=== PATIENT | female | born 1970 | race African-American/Black ===

== ENCOUNTER 2016-08-09 19:33 | Inpatient (IN) | payer BC, OTHER ==
[~2016-08-09] VITALS: Ht 157.5 cm; Wt 86.2 kg
[~2016-08-09 19:33] MED LIST: BYSTOLIC10 MG PO; OLME1TAB5 PO
[2016-08-09 20:22] LABS: BASO # 0.1 x10^3/uL (0.0-0.2); BASO % 1 % (0-3); CALCIUM 9.7 mg/dL (8.5-10.1); CREATININE 1.7 mg/dL (0.6-1.0); EOS % 0 % (0-3); HEMATOCRIT 29.1 % (36.0-47.0); LYMPH # 1.8 x10^3/uL (1.0-4.8); LYMPH % 20 % (24-48); MEAN CORPUSCULAR HEMOGLOBIN 23 pg (25-35); MEAN CORPUSCULAR HGB CONC 31 g/dL (31-37); MEAN CORPUSCULAR VOLUME 74 fL (79-100); MONO % 5 % (0-9); NEUT % 74 % (31-73); PLATELET COUNT 158 x10^3/uL (140-400); POTASSIUM 3.3 mmol/L (3.5-5.1); RED BLOOD COUNT 3.93 x10^6/uL (3.50-5.40); RED CELL DISTRIBUTION WIDTH 18.1 % (11.5-14.5); WHITE BLOOD COUNT 8.9 x10^3/uL (4.0-11.0)
[2016-08-09 20:27] LABS: ALBUMIN 3.4 g/dL (3.4-5.0); DIRECT BILIRUBIN 0.4 mg/dL (0.0-0.2); TOTAL PROTEIN 9.8 g/dL (6.4-8.2)
[2016-08-09 20:51] LABS: HYPOCHROMIA MOD; PLT ESTIMATE ADEQUATE (ADEQUATE)
[2016-08-09 20:52] LABS: ANISOCYTOSIS SLIGHT; MICROCYTOSIS SLIGHT; POLYCHROMASIA SLIGHT
[2016-08-09 21:52] LABS: BILIRUBIN,URINE NEGATIVE (NEG); GLUCOSE,URINE NEGATIVE (NEG); NITRITE,URINE NEGATIVE (NEG); PH,URINE 5.5; PROTEIN,URINE NEGATIVE (NEG-TRACE)
[2016-08-09 21:59] LABS: BACTERIA,URINE MODERATE /HPF (0-FEW); RBC,URINE 0 /HPF (0-2); SQUAMOUS EPITHELIAL CELL,UR MOD /LPF
--- NOTE | 2016-08-09 22:59 | PHYS DOC ---
Past Medical History Past Medical History: Hypertension Past Surgical History: No Surgical History Alcohol Use: Occasionally Drug Use: None Adult General Chief Complaint Chief Complaint: DIZZY/LIGHT HEADED HPI HPI 46-year-old female presenting to the emergency department with lightheadedness and dizziness intermittently for the past few days. It is worse with standing and started after being prescribed hydrocodone and Flexeril. She denies chest pain or shortness of breath. She was of prescribed this for her chronic back pain. Onset 2 days Location generalized Duration intermittent Worse with standing up. Review of Systems Review of Systems ROS negative for chest pain shortness of breath abdominal pain nausea vomiting. All other review of systems is negative unless otherwise noted in history of present illness. Current Medications Current Medications Current Medications Medications (Trade) Dose Ordered Sig/Bianca Start Time Stop Time Status Last Admin Dose Admin Morphine Sulfate 2 mg 2 mg PRN Q2HR PRN 08/09/16 23:00 08/10/16 22:59 Ondansetron HCl (Zofran) 4 mg PRN Q8HRS PRN 08/09/16 23:00 08/10/16 22:59 Potassium Chloride (Klor-Con) 20 meq 1X ONCE 08/09/16 23:45 08/09/16 23:46 DC Sodium Chloride (Iv Sodium Chloride 0.9% 1000ml Bag) 1,000 ml @ 125 mls/hr 1X ONCE 08/09/16 23:00 08/10/16 06:59 Allergies Allergies Allergies Coded Allergies Type Severity Reaction Last Updated Verified No Known Drug Allergies 03/29/15 No Physical Exam Physical Exam Constitutional: Well developed, well nourished, no acute distress, non-toxic appearance. HENT: Normocephalic, atraumatic, bilateral external ears normal, oropharynx moist, no oral exudates, nose normal. [] Eyes: PERRLA, EOMI, conjunctiva normal, no discharge. [] Neck: Normal range of motion, no tenderness, supple, no stridor. Cardiovascular:Heart rate regular rhythm, no murmur [] Lungs & Thorax: Bilateral breath sounds clear to auscultation Abdomen: Bowel sounds normal, soft, no tenderness, no masses, no pulsatile masses. [] Skin: Warm, dry, no erythema, no rash. Back: No tenderness, no CVA tenderness. [] Extremities: No tenderness, no cyanosis, no clubbing, ROM intact, no edema. Neurologic: Mental status: Awake oriented and alert x3 Cranial nerves: Extraocular movements intact, eyebrows nadia bilaterally smile symmetric, uvula elevation, shoulder shrug intact, tongue protrusion normal DTRs: 2+ Sensation: equal and normal in all extremities Strength: 5/5 in upper and lower extremities bilaterally Psychologic: Affect normal, judgement normal, mood normal. Current Patient Data Vital Signs Vital Signs Date Time Temp Pulse Resp B/P Pulse Ox O2 Delivery O2 Flow Rate FiO2 08/09/16 19:33 98.6 92 14 179/103 99 Room Air 98.6 Lab Values Laboratory Tests Test 08/09/16 19:49 08/09/16 21:19 White Blood Count 8.9x10^3/uL (4.0-11.0) Red Blood Count 3.93x10^6/uL (3.50-5.40) Hemoglobin 9.0g/dL (12.0-15.5) L Hematocrit 29.1% (36.0-47.0) L Mean Corpuscular Volume 74fL (79-100) L Mean Corpuscular Hemoglobin 23pg (25-35) L Mean Corpuscular Hemoglobin Concent 31g/dL (31-37) Red Cell Distribution Width 18.1% (11.5-14.5) H Platelet Count 158x10^3/uL (140-400) Neutrophils (%) (Auto) 74% (31-73) H Lymphocytes (%) (Auto) 20% (24-48) L Monocytes (%) (Auto) 5% (0-9) Eosinophils (%) (Auto) 0% (0-3) Basophils (%) (Auto) 1% (0-3) Neutrophils # (Auto) 6.5x10^3uL (1.8-7.7) Lymphocytes # (Auto) 1.8x10^3/uL (1.0-4.8) Monocytes # (Auto) 0.5x10^3/uL (0.0-1.1) Eosinophils # (Auto) 0.0x10^3/uL (0.0-0.7) Basophils # (Auto) 0.1x10^3/uL (0.0-0.2) Platelet Estimate Adequate (ADEQUATE) Polychromasia Slight Hypochromasia Mod Anisocytosis Slight Microcytosis Slight Sodium Level 136mmol/L (136-145) Potassium Level 3.3mmol/L (3.5-5.1) L Chloride Level 99mmol/L (98-107) Carbon Dioxide Level 22mmol/L (21-32) Anion Gap 15 (6-14) H Blood Urea Nitrogen 24mg/dL (7-20) H Creatinine 1.7mg/dL (0.6-1.0) H Estimated GFR (Cockcroft-Gault) 39.0 Glucose Level 157mg/dL (70-99) H Calcium Level 9.7mg/dL (8.5-10.1) Total Bilirubin 1.0mg/dL (0.2-1.0) Direct Bilirubin 0.4mg/dL (0.0-0.2) H Aspartate Amino Transferase (AST) 93U/L (15-37) H Alanine Aminotransferase (ALT) 62U/L (14-59) H Alkaline Phosphatase 168U/L (46-116) H Troponin I Quantitative < 0.017ng/mL (0.000-0.055) MF-Fhz-G-Type Natriuretic Peptide 55pg/mL (0-124) Total Protein 9.8g/dL (6.4-8.2) H Albumin 3.4g/dL (3.4-5.0) Lipase 83U/L (73-393) Urine Collection Type Unknown Urine Color Yellow Urine Clarity Cloudy Urine pH 5.5 Urine Specific [place] 1.015 Urine Protein Negativemg/dL (NEG-TRACE) Urine Glucose (UA) Negativemg/dL (NEG) Urine Ketones (Stick) Negativemg/dL (NEG) Urine Blood Negative (NEG) Urine Nitrite Negative (NEG) Urine Bilirubin Negative (NEG) Urine Urobilinogen Dipstick 1.0mg/dL (0.2 mg/dL) Urine Leukocyte Esterase Negative (NEG) Urine RBC 0/HPF (0-2) Urine WBC 1-4/HPF (0-4) Urine Squamous Epithelial Cells Mod/LPF Urine Bacteria Moderate/HPF (0-FEW) Urine Mucus Slight/LPF Laboratory Tests 08/09/16 19:49 Laboratory Tests 08/09/16 19:49 EKG EKG EKG shows sinus rhythm with regular rate. Normal intervals. Normal axis. ST segments are congruent. Not suggestive of ACS. Reviewed by myself.[] Radiology/Procedures Radiology/Procedures [] Course & Med Decision Making Course & Med Decision Making Pertinent Labs and Imaging studies reviewed. (See chart for details) 46-year-old female presenting to the emergency department with dizziness and lightheadedness after being prescribed medication. On evaluation, the patient's vital signs showed hypertension, otherwise unremarkable.. Orthostatic vital signs were within normal limits. Physical exam showed a normal neurologic exam. Otherwise the patient's blood work showed an anemia without previous for comparison. Urinalysis not suggestive of infection. Chemistry panel showed elevated BUN and creatinine. Low potassium and mildly elevated bilirubin. The patient was given IV fluids. The patient's potassium was replaced. The patient was then admitted to our hospital for further evaluation workup and care. Nephrology consult placed. Dragon Disclaimer Dragon Disclaimer This electronic medical record was generated, in whole or in part, using a voice recognition dictation system. Departure Departure Impression: Primary Impression: Dehydration Additional Impressions: Lightheadedness Acute kidney injury Disposition: ADMITTED INPATIENT Admitting Physician: Onur Samaniego Condition: IMPROVED Referrals: ONUR SAMANIEGO MD (PCP) Problem Qualifiers DONALD MORE MD Aug 09, 2016 22:59
[2016-08-09] MEDS ORDERED: IV NORMAL SALINE 1000ML BAG 1,000 ML IV ONE (23:00)
[2016-08-09] MEDS ORDERED: ONDANSETRON PF 4 MG/2 ML VIAL. IV PRN (23:00)
[2016-08-09] MEDS ORDERED: MORPHINE SULFATE 2 MG/ML DISP.SYRIN. IV PRN (23:00)
[2016-08-09] MEDS ORDERED: POTASSIUM CHLORIDE 20 MEQ TABLET.ER. PO ONE (23:45)
--- NOTE | 2016-08-10 00:42 | ACF ---
Admission Forms Criteria DIZZINESS Clinical Indications for Admission to Inpatient Care (Place 'X' for any and all applicable criteria): Admission is indicated for ANY ONE of the following(1)(2)(3)(4): [ ]I. Inpatient admission required rather than observation care (Also use Dizziness: Observation Care as appropriate) because of ANY ONE of the following: [ ]a) Hemodynamic instability that is severe or persistent [ ]b) Signs or symptoms that are severe or persistent (eg, vomit, orthostasis, inability to ambulate) [ ]c) Cardiac arrhythmias of immediate concern [ ]d) Severe (new) neurologic findings requiring inpatient care as indicated by ANY ONE of the following(6)(7): [ ]1) Cerebral bleeding, ischemia, or vasospasm(8)(9) [ ]2) Increased intracranial pressure or hydrocephalus(10)(11)(12) [ ]3) Papilledema [ ]4) Cerebral edema [ ]5) Mass effect on CT scan [ ]e) Continuous IV infusion of anticoagulation, platelet inhibitor, vasoactive, or antiarrhythmic medication [ ]f) Cerebral bleeding, hydrocephalus, or vasospasm monitoring(14) [ ]g) Increased intracranial pressure or cerebral edema monitoring [ ]h) Vomiting that is severe or persistent [ ]i) Other condition, treatment or monitoring requiring inpatient admission [ ]II. A suspected etiology that requires admission for treatment [ ]III. Acute bacterial labyrinthitis [ ]IV. Cerebellar, brainstem, or cerebral ischemia or hemorrhage (5) Extended stay beyond goal length of stay may be needed for evaluating and treating a specific cause of dizziness, including(32) [ ]a) Head injury (Also use Traumatic Brain Injury, Nonsurgical Treatment guideline) [ ]b) New-onset vertebrobasilar vascular insufficiency [ ]c) Acute Meniere disease with intractable symptoms [ ]d) Cardiac arrhythmias or conduction defects [ ]e) Acute neurologic event causing dizziness [ ]f) Myocardial ischemia [ ]g) Acute bacterial labyrinthitis. [ ]h) Severe acute vestibular neuronitis The original [facility] content created by Jake Schulte has been revised. The portions of the content which have been revised are identified through the use of italic text or in bold, and [employer] has neither reviewed nor approved the modified material. All other unmodified content is copyright [facility] [employer]. Please see references footnoted in the original [facility] edition 2016 MARTÍNEZ STRATTON Aug 10, 2016 00:42
--- NOTE | 2016-08-10 01:10 | ACF ---
Admission Forms Criteria DEHYDRATION: OBSERVATION CARE USE THIS FORM ONLY WHEN INPATIENT ADMISSION CRITERIA ARE NOT MET. (Place X for any and all applicable criteria): Placement for observation care may be appropriate for a patient with ANY ONE of the following (1)(2)(3)(4)(5)(6): []I. Refractory vomiting (ie, precluding oral rehydration) []II. Electrolyte imbalance unable to be corrected in outpatient setting []III. Hemodynamic instability []IV. Failure to remain hydrated with outpatient therapy []V. A child whose situation includes ANY ONE of the following: []a) Clinical response to outpatient therapy uncertain []b) Outpatient supervision by parents or caregivers uncertain [X].Other observation care needs (See General Criteria: Observation Care) The original [facility] content created by [facility] [employer] has been revised. The portions of the content which have been revised are identified through the use of italic text, and [facility] has neither reviewed nor approved the modified material. All other unmodified content is copyright [facility] [employer]. Please see references footnoted in the original [facility] edition 2016 Admission Criteria Met?: Yes MARTÍNEZ STRATTON Aug 10, 2016 01:10
[2016-08-10 01:40] VITALS: BP 175/106
[2016-08-10 04:15] LABS: BASO % 1 % (0-3); EOS % 0 % (0-3); HEMATOCRIT 27.7 % (36.0-47.0); HEMOGLOBIN 8.5 g/dL (12.0-15.5); LYMPH # 2.6 x10^3/uL (1.0-4.8); LYMPH % 26 % (24-48); MEAN CORPUSCULAR HEMOGLOBIN 23 pg (25-35); MEAN CORPUSCULAR HGB CONC 31 g/dL (31-37); MEAN CORPUSCULAR VOLUME 74 fL (79-100); MONO % 7 % (0-9); NEUT % 66 % (31-73); PLATELET COUNT 159 x10^3/uL (140-400); RED BLOOD COUNT 3.73 x10^6/uL (3.50-5.40); RED CELL DISTRIBUTION WIDTH 18.1 % (11.5-14.5); WHITE BLOOD COUNT 9.8 x10^3/uL (4.0-11.0)
[2016-08-10 04:22] LABS: CALCIUM 9.4 mg/dL (8.5-10.1); CREATININE 1.5 mg/dL (0.6-1.0); POTASSIUM 3.8 mmol/L (3.5-5.1)
--- NOTE | 2016-08-10 06:11 | EKG ---
[facility] [address] [place] [address] Test Date: 2016-08-09 Test Time: 19:49:54 Pat Name: JENNIFER TRAN Department: Room: [facility] Gender: F Resourcing Advisor: : [id number] Requested By: DONALD MORE Order Number: [id number] Reading MD: Dashawn Iverson Measurements Intervals [place] Rate: 84 P: 36 SD: 146 QRS: 24 QRSD: 68 T: 9 QT: 364 QTc: 433 Interpretive Statements SINUS RHYTHM NON-SPECIFIC ST/T CHANGES Electronically Signed On 08-11-2016 15:29:17 FINANCIAL SERVICES REPRESENTATIVE by Dashawn Iverson
[2016-08-10 07:00] VITALS: BP 180/111
[2016-08-10 11:00] VITALS: BP 157/95
--- NOTE | 2016-08-10 11:14 | PDOC2 ---
CONSULT Date of Consult Date of Consult DATE: 08/10/16 TIME: 11:11 Reason for Consult Reason for Consult: AISSATOU Referring Physician Referring Physician: DANETTE Identification/Chief Complaint Chief Complaint DIZZY Source Source: Chart review, Patient History of Present Illness Reason for Visit: THIS IS A 46 YR OLD ADMITTED VIA THE ER DUE TO DIZZINESS. SHE HAS HAD THIS SINCE STARTING FLEXERIL AND HYDROCODONE FOR HER BACK PAIN LAST WEEK. SHE HAS NOT BEEN EATING MUCH OF ANYTHING SINCE LAST WED. DENIED DIARRHEA. NO CKD HX. NO NSAID HX NOTED. NO HX OF ANY KIDNEY OR BLADDER SURGERIES HEMATURIA DYSURIA OR FREQUENCY NOTED Past Medical History Cardiovascular: HTN Pulmonary: No pertinent hx GI: No pertinent hx Hepatobiliary: No pertinent hx Past Surgical History Past Surgical History: No pertinent history Family History Family History: Diabetes Social History ALCOHOL: occassional Current Problem List Problem List Problems Medical Problems: (1) Acute kidney injury Status: Acute (2) Dehydration Status: Acute (3) Lightheadedness Status: Acute Current Medications Current Medications Current Medications Ondansetron HCl (Zofran) 4 mg PRN Q8HRS PRN IV NAUSEA/VOMITING; Start 08/09/16 at 23:00; Stop 08/10/16 at 22:59 Morphine Sulfate 2 mg 2 mg PRN Q2HR PRN IV SEVERE PAIN Last administered on 08/10 01:51; Start 08/09/16 at 23:00; Stop 08/10/16 at 22:59 Sodium Chloride (Iv Sodium Chloride 0.9% 1000ml Bag) 1,000 ml @ 125 mls/hr 1X ONCE IV Last administered on 08/09/16 00:43; Start 08/09/16 at 23:00; Stop at 06:59; Status DC Potassium Chloride (Klor-Con) 20 meq 1X ONCE PO Last administered on 08/09/16 00:43; Start 08/09/16 at 23:45; Stop 08/09/16 at 23:46; Status DC Active Scripts Active Reported Bystolic (Nebivolol) 10 Mg Tablet 1 Tab PO DAILY Benicar Hct 40-25 Mg Tablet (Olmesartan/Hydrochlorothiazide) 1 Each Tablet 1 Tab PO DAILY Allergies Allergies: Coded Allergies: No Known Drug Allergies (Unverified , 03/29/15) ROS General: YES: Appetite, Fatigue, Malaise PSYCHOLOGICAL ROS: YES: Anxiety Eyes: Yes Decreased vision HEENT: YES: Heacaches Respiratory: YES: Cough Gastrointestinal: Yes Constipation, Yes Nausea Musculoskeletal: Yes Muscular Weakness Neurological: Yes Weakness Physical Exam General: Alert, Oriented X3, Cooperative, No acute distress HEENT: Atraumatic, PERRLA Lungs: Clear to auscultation, Normal air movement Heart: Regular rate, Normal S1, Normal S2 Abdomen: Normal bowel sounds, Soft, No tenderness Extremities: No clubbing Neuro: Normal speech MUSCULOSKELETAL: No deformity, No swelling Vitals VITALS Vital Signs Date Time Temp Pulse Resp B/P Pulse Ox O2 Delivery O2 Flow Rate FiO2 08/10/16 08:00 Room Air 08/10/16 07:00 98.2 78 18 180/111 96 98.2 Labs Labs Laboratory Tests Test 08/09/16 19:49 08/09/16 21:19 08/10/16 03:40 White Blood Count 8.9x10^3/uL (4.0-11.0) 9.8x10^3/uL (4.0-11.0) Red Blood Count 3.93x10^6/uL (3.50-5.40) 3.73x10^6/uL (3.50-5.40) Hemoglobin 9.0g/dL (12.0-15.5) 8.5g/dL (12.0-15.5) Hematocrit 29.1% (36.0-47.0) 27.7% (36.0-47.0) Mean Corpuscular Volume 74fL (79-100) 74fL (79-100) Mean Corpuscular Hemoglobin 23pg (25-35) 23pg (25-35) Mean Corpuscular Hemoglobin Concent 31g/dL (31-37) 31g/dL (31-37) Red Cell Distribution Width 18.1% (11.5-14.5) 18.1% (11.5-14.5) Platelet Count 158x10^3/uL (140-400) 159x10^3/uL (140-400) Neutrophils (%) (Auto) 74% (31-73) 66% (31-73) Lymphocytes (%) (Auto) 20% (24-48) 26% (24-48) Monocytes (%) (Auto) 5% (0-9) 7% (0-9) Eosinophils (%) (Auto) 0% (0-3) 0% (0-3) Basophils (%) (Auto) 1% (0-3) 1% (0-3) Neutrophils # (Auto) 6.5x10^3uL (1.8-7.7) 6.4x10^3uL (1.8-7.7) Lymphocytes # (Auto) 1.8x10^3/uL (1.0-4.8) 2.6x10^3/uL (1.0-4.8) Monocytes # (Auto) 0.5x10^3/uL (0.0-1.1) 0.7x10^3/uL (0.0-1.1) Eosinophils # (Auto) 0.0x10^3/uL (0.0-0.7) 0.0x10^3/uL (0.0-0.7) Basophils # (Auto) 0.1x10^3/uL (0.0-0.2) 0.0x10^3/uL (0.0-0.2) Platelet Estimate Adequate (ADEQUATE) Polychromasia Slight Hypochromasia Mod Anisocytosis Slight Microcytosis Slight Sodium Level 136mmol/L (136-145) 138mmol/L (136-145) Potassium Level 3.3mmol/L (3.5-5.1) 3.8mmol/L (3.5-5.1) Chloride Level 99mmol/L (98-107) 101mmol/L (98-107) Carbon Dioxide Level 22mmol/L (21-32) 23mmol/L (21-32) Anion Gap 15 (6-14) 14 (6-14) Blood Urea Nitrogen 24mg/dL (7-20) 22mg/dL (7-20) Creatinine 1.7mg/dL (0.6-1.0) 1.5mg/dL (0.6-1.0) Estimated GFR (Cockcroft-Gault) 39.0 45.0 Glucose Level 157mg/dL (70-99) 100mg/dL (70-99) Calcium Level 9.7mg/dL (8.5-10.1) 9.4mg/dL (8.5-10.1) Total Bilirubin 1.0mg/dL (0.2-1.0) Direct Bilirubin 0.4mg/dL (0.0-0.2) Aspartate Amino Transf (AST/SGOT) 93U/L (15-37) Alanine Aminotransferase (ALT/SGPT) 62U/L (14-59) Alkaline Phosphatase 168U/L (46-116) Troponin I Quantitative < 0.017ng/mL (0.000-0.055) IK-Olr-[id number]-Type Natriuretic Peptide 55pg/mL (0-124) Total Protein 9.8g/dL (6.4-8.2) Albumin 3.4g/dL (3.4-5.0) Lipase 83U/L (73-393) Urine Collection Type Unknown Urine Color Yellow Urine Clarity Cloudy Urine pH 5.5 Urine Specific [place] 1.015 Urine Protein Negativemg/dL (NEG-TRACE) Urine Glucose (UA) Negativemg/dL (NEG) Urine Ketones (Stick) Negativemg/dL (NEG) Urine Blood Negative (NEG) Urine Nitrite Negative (NEG) Urine Bilirubin Negative (NEG) Urine Urobilinogen Dipstick 1.0mg/dL (0.2 mg/dL) Urine Leukocyte Esterase Negative (NEG) Urine RBC 0/HPF (0-2) Urine WBC 1-4/HPF (0-4) Urine Squamous Epithelial Cells Mod/LPF Urine Bacteria Moderate/HPF (0-FEW) Urine Mucus Slight/LPF Laboratory Tests Test 08/09/16 19:49 08/09/16 21:19 08/10/16 03:40 White Blood Count 8.9x10^3/uL (4.0-11.0) 9.8x10^3/uL (4.0-11.0) Red Blood Count 3.93x10^6/uL (3.50-5.40) 3.73x10^6/uL (3.50-5.40) Hemoglobin 9.0g/dL (12.0-15.5) 8.5g/dL (12.0-15.5) Hematocrit 29.1% (36.0-47.0) 27.7% (36.0-47.0) Mean Corpuscular Volume 74fL (79-100) 74fL (79-100) Mean Corpuscular Hemoglobin 23pg (25-35) 23pg (25-35) Mean Corpuscular Hemoglobin Concent 31g/dL (31-37) 31g/dL (31-37) Red Cell Distribution Width 18.1% (11.5-14.5) 18.1% (11.5-14.5) Platelet Count 158x10^3/uL (140-400) 159x10^3/uL (140-400) Neutrophils (%) (Auto) 74% (31-73) 66% (31-73) Lymphocytes (%) (Auto) 20% (24-48) 26% (24-48) Monocytes (%) (Auto) 5% (0-9) 7% (0-9) Eosinophils (%) (Auto) 0% (0-3) 0% (0-3) Basophils (%) (Auto) 1% (0-3) 1% (0-3) Neutrophils # (Auto) 6.5x10^3uL (1.8-7.7) 6.4x10^3uL (1.8-7.7) Lymphocytes # (Auto) 1.8x10^3/uL (1.0-4.8) 2.6x10^3/uL (1.0-4.8) Monocytes # (Auto) 0.5x10^3/uL (0.0-1.1) 0.7x10^3/uL (0.0-1.1) Eosinophils # (Auto) 0.0x10^3/uL (0.0-0.7) 0.0x10^3/uL (0.0-0.7) Basophils # (Auto) 0.1x10^3/uL (0.0-0.2) 0.0x10^3/uL (0.0-0.2) Platelet Estimate Adequate (ADEQUATE) Polychromasia Slight Hypochromasia Mod Anisocytosis Slight Microcytosis Slight Sodium Level 136mmol/L (136-145) 138mmol/L (136-145) Potassium Level 3.3mmol/L (3.5-5.1) 3.8mmol/L (3.5-5.1) Chloride Level 99mmol/L (98-107) 101mmol/L (98-107) Carbon Dioxide Level 22mmol/L (21-32) 23mmol/L (21-32) Anion Gap 15 (6-14) 14 (6-14) Blood Urea Nitrogen 24mg/dL (7-20) 22mg/dL (7-20) Creatinine 1.7mg/dL (0.6-1.0) 1.5mg/dL (0.6-1.0) Estimated GFR (Cockcroft-Gault) 39.0 45.0 Glucose Level 157mg/dL (70-99) 100mg/dL (70-99) Calcium Level 9.7mg/dL (8.5-10.1) 9.4mg/dL (8.5-10.1) Total Bilirubin 1.0mg/dL (0.2-1.0) Direct Bilirubin 0.4mg/dL (0.0-0.2) Aspartate Amino Transf (AST/SGOT) 93U/L (15-37) Alanine Aminotransferase (ALT/SGPT) 62U/L (14-59) Alkaline Phosphatase 168U/L (46-116) Troponin I Quantitative < 0.017ng/mL (0.000-0.055) UR-Trq-J-Type Natriuretic Peptide 55pg/mL (0-124) Total Protein 9.8g/dL (6.4-8.2) Albumin 3.4g/dL (3.4-5.0) Lipase 83U/L (73-393) Urine Collection Type Unknown Urine Color Yellow Urine Clarity Cloudy Urine pH 5.5 Urine Specific [place] 1.015 Urine Protein Negativemg/dL (NEG-TRACE) Urine Glucose (UA) Negativemg/dL (NEG) Urine Ketones (Stick) Negativemg/dL (NEG) Urine Blood Negative (NEG) Urine Nitrite Negative (NEG) Urine Bilirubin Negative (NEG) Urine Urobilinogen Dipstick 1.0mg/dL (0.2 mg/dL) Urine Leukocyte Esterase Negative (NEG) Urine RBC 0/HPF (0-2) Urine WBC 1-4/HPF (0-4) Urine Squamous Epithelial Cells Mod/LPF Urine Bacteria Moderate/HPF (0-FEW) Urine Mucus Slight/LPF Assessment/Plan Assessment/Plan IMP DEHYDRATION AISSATOU DUE TO ABOVE PLAN HOLD HER BENICAR/HCTZ RESUME IVF'S FOR NOW WILL FOLLOW NOAH WANG MD Aug 10, 2016 11:14
[2016-08-10] MEDS: IV NORMAL SALINE 1000ML BAG 1,000 ML IV SCH (11:43)
[2016-08-10 15:00] VITALS: BP 163/99
--- NOTE | 2016-08-10 15:47 | PDOC2 ---
GI CONSULT Reason For Consult: Anemia, ?blood loss HPI: HPI: 46 y/o AA female admitted w/ lightheadedness and dizziness after taking hydrocodone and Flexeril for chronic/worsening back pain. GI consult requested for anemia. Labs show Hgb 8.5 (from 9) w/ low indices and elevated RDW, bilirubin 1, AST 93, ALT 62, Alk Phos 168, BUN 22 (from 24), Cr 1.5 (from 1.7). Nephrology is also following. She denies reflux/heartburn, dysphagia, n/v, hematemesis, abdominal pain, diarrhea, constipation, hematochezia, melena, and weight loss. No h/o anemia, EGD, or colonoscopy. She has had heavy periods for about 6 months; menstrual bleeding can last up to 14 days. She estimates using about 4-5 tampons daily. Last pelvic exam was years ago. Reports h/o fatty liver; she used to drink alcohol heavily but now has about 1 bottle of wine every weekend. Denies NSAID use. Iron studies, hepatitis panel, abd/pelvis US and CT head are ordered. PMH: PMH: HTN, fatty liver FH: Family History: No pertinent hx (denies GI cancers, IBD), DM Social History: Smoke: No ALCOHOL: other (used to drink heavily, now has 1 bottle of wine each weekend) Drugs: None ROS: GEN: Denies fevers, chills, sweats HEENT: Denies blurred vision, sore throat CV: Denies chest pain RESP: Denies shortness of air, cough GI: Per HPI : Denies hematuria, dysuria ENDO: Denies weight changes NEURO: +dizziness MSK: Denies weakness, joint pain/swelling SKIN: Denies jaundice, pruritus VItals: Vitals: Vital Signs Date Time Temp Pulse Resp B/P Pulse Ox O2 Delivery O2 Flow Rate FiO2 08/10/16 15:00 98.0 83 18 163/99 98 Room Air 98.0 Labs: Labs: Laboratory Tests Test 08/09/16 19:49 08/09/16 21:19 08/10/16 03:40 White Blood Count 8.9x10^3/uL (4.0-11.0) 9.8x10^3/uL (4.0-11.0) Red Blood Count 3.93x10^6/uL (3.50-5.40) 3.73x10^6/uL (3.50-5.40) Hemoglobin 9.0g/dL (12.0-15.5) 8.5g/dL (12.0-15.5) Hematocrit 29.1% (36.0-47.0) 27.7% (36.0-47.0) Mean Corpuscular Volume 74fL (79-100) 74fL (79-100) Mean Corpuscular Hemoglobin 23pg (25-35) 23pg (25-35) Mean Corpuscular Hemoglobin Concent 31g/dL (31-37) 31g/dL (31-37) Red Cell Distribution Width 18.1% (11.5-14.5) 18.1% (11.5-14.5) Platelet Count 158x10^3/uL (140-400) 159x10^3/uL (140-400) Neutrophils (%) (Auto) 74% (31-73) 66% (31-73) Lymphocytes (%) (Auto) 20% (24-48) 26% (24-48) Monocytes (%) (Auto) 5% (0-9) 7% (0-9) Eosinophils (%) (Auto) 0% (0-3) 0% (0-3) Basophils (%) (Auto) 1% (0-3) 1% (0-3) Neutrophils # (Auto) 6.5x10^3uL (1.8-7.7) 6.4x10^3uL (1.8-7.7) Lymphocytes # (Auto) 1.8x10^3/uL (1.0-4.8) 2.6x10^3/uL (1.0-4.8) Monocytes # (Auto) 0.5x10^3/uL (0.0-1.1) 0.7x10^3/uL (0.0-1.1) Eosinophils # (Auto) 0.0x10^3/uL (0.0-0.7) 0.0x10^3/uL (0.0-0.7) Basophils # (Auto) 0.1x10^3/uL (0.0-0.2) 0.0x10^3/uL (0.0-0.2) Platelet Estimate Adequate (ADEQUATE) Polychromasia Slight Hypochromasia Mod Anisocytosis Slight Microcytosis Slight Sodium Level 136mmol/L (136-145) 138mmol/L (136-145) Potassium Level 3.3mmol/L (3.5-5.1) 3.8mmol/L (3.5-5.1) Chloride Level 99mmol/L (98-107) 101mmol/L (98-107) Carbon Dioxide Level 22mmol/L (21-32) 23mmol/L (21-32) Anion Gap 15 (6-14) 14 (6-14) Blood Urea Nitrogen 24mg/dL (7-20) 22mg/dL (7-20) Creatinine 1.7mg/dL (0.6-1.0) 1.5mg/dL (0.6-1.0) Estimated GFR (Cockcroft-Gault) 39.0 45.0 Glucose Level 157mg/dL (70-99) 100mg/dL (70-99) Calcium Level 9.7mg/dL (8.5-10.1) 9.4mg/dL (8.5-10.1) Total Bilirubin 1.0mg/dL (0.2-1.0) Direct Bilirubin 0.4mg/dL (0.0-0.2) Aspartate Amino Transf (AST/SGOT) 93U/L (15-37) Alanine Aminotransferase (ALT/SGPT) 62U/L (14-59) Alkaline Phosphatase 168U/L (46-116) Troponin I Quantitative < 0.017ng/mL (0.000-0.055) OS-Rac-X-Type Natriuretic Peptide 55pg/mL (0-124) Total Protein 9.8g/dL (6.4-8.2) Albumin 3.4g/dL (3.4-5.0) Lipase 83U/L (73-393) Urine Collection Type Unknown Urine Color Yellow Urine Clarity Cloudy Urine pH 5.5 Urine Specific [place] 1.015 Urine Protein Negativemg/dL (NEG-TRACE) Urine Glucose (UA) Negativemg/dL (NEG) Urine Ketones (Stick) Negativemg/dL (NEG) Urine Blood Negative (NEG) Urine Nitrite Negative (NEG) Urine Bilirubin Negative (NEG) Urine Urobilinogen Dipstick 1.0mg/dL (0.2 mg/dL) Urine Leukocyte Esterase Negative (NEG) Urine RBC 0/HPF (0-2) Urine WBC 1-4/HPF (0-4) Urine Squamous Epithelial Cells Mod/LPF Urine Bacteria Moderate/HPF (0-FEW) Urine Mucus Slight/LPF Allergies: Coded Allergies: No Known Drug Allergies (Unverified , 03/29/15) Medications: Current Medications Medications (Trade) Dose Ordered Sig/Bianca Route PRN Reason Start Time Stop Time Status Last Admin Dose Admin Morphine Sulfate 2 mg 2 mg PRN Q2HR PRN IV SEVERE PAIN 08/09/16 23:00 08/10/16 22:59 08/10/16 01:51 Sodium Chloride (Iv Sodium Chloride 0.9% 1000ml Bag) 1,000 ml @ 125 mls/hr 1X ONCE IV 08/09/16 23:00 08/10/16 06:59 DC 08/09/16 00:43 Potassium Chloride 20 meq 20 meq 1X ONCE PO 08/09/16 23:45 08/09/16 23:46 DC 08/09/16 00:43 Sodium Chloride (Iv Sodium Chloride 0.9% 1000ml Bag) 1,000 ml @ 100 mls/hr Q10H IV 08/10/16 11:15 08/10/16 11:43 Imaging: Imaging: - PE: GEN: NAD HEENT: Atraumatic, PERRL LUNGS: CTAB HEART: RRR ABD: NABS, S/ND, epigastric discomfort EXTREMITY: No edema SKIN: No rashes, no jaundice NEURO/PSYCH: A & O 3 A/P: A/P: Anemia -Hgb 8.5, no overt GI bleeding, but does have heavy menstrual periods x 6 months Elevated LFTs, h/o fatty liver, h/o alcohol use Dizziness -- Await ultrasound, additional labs. ?BACK END ARCHITECT consult. EGD and colonoscopy could be pursued as an outpatient. OTILIA MONROY Aug 10, 2016 15:47
[2016-08-10] MEDS: LOSARTAN POTASSIUM 50 MG TABLET. PO SCH (16:00)
--- NOTE | 2016-08-10 16:13 | RAD ---
PROCEDURE MRI lumbar spine without contrast. HISTORY Low back pain with bilateral leg radiculopathy for 2 weeks TECHNIQUE Sagittal and axial T1 and T2 and sagittal STIR images were acquired of the lumbar spine. Contrast: None COMPARISON None FINDINGS Lumbar vertebral body stature and AP alignment are preserved. Is mild edema of the posterior, inferior L5 endplate. Mild L5-S1 degenerative disc disease. There is anterior annular tear L4-5. There are some small foci of marrow signal abnormality of the L3 vertebral body slightly hyperintense on T2 and STIR sequences and isointense on T1 sequence. There is a tiny hemangioma of the L1 vertebral body, also small foci of L3 and L4. There is a cystic focus of the visualized left pelvis on the order of at least 4.1 centimeters in size, not fully included. Conus terminates at L1. L2-L3: Spinal canal and neural foramina are adequate. L3-L4: Spinal canal and neural foramina are adequate. There is mild facet degenerative change and buckling of the ligamentum flavum. L4-5: There is a shallow posterior central protrusion without significant neural impingement. Spinal canal and neural foramina are adequate. There is mild buckling of the ligamentum flavum. L5-S1: There is a posterior extrusion extending above the intervertebral disc space, on the order of approximately 10 millimeter cc by 6 millimeters AP by 9 millimeters transverse. There is indentation upon the ventral thecal sac, contact of the ventral rami of the descending L5 nerve roots bilaterally. There is overall mild spinal stenosis. Neural foramina are adequate. IMPRESSION 1. There is an extrusion extending above the L5-S1 intervertebral disc space more centrally, contact of the ventral rami of the descending L5 nerve roots bilaterally. There is mild edema of the posterior, inferior L5 endplate more likely to be reactive/degenerative in etiology. 2. There is mild degenerative disc disease L5-S1. 3. There are small foci of nonspecific marrow signal abnormality of the L3 vertebral body. Small atypical hemangiomas are favored over more aggressive marrow replacing lesions especially in a patient this age and assuming no suspicion for or history of malignancy. There are other small typical hemangiomas. 4. There is approximate 4 centimeter T2 hyperintense lesion of the left pelvis most likely due to adnexal cyst. Given size, confirmation with ultrasound may be beneficial. Electronically signed by: Mikhail Bonilla MD (Aug 10, 2016 16:12:10)
[2016-08-10 16:25] LABS: % SAT IRON 5 % (15-34); IRON,SERUM 27 ug/dL (50-170)
--- NOTE | 2016-08-10 16:31 | RAD ---
CT head without contrast History: Hypertension, slurred speech, confusion. Comparison: None. Procedure: Axial images are obtained of the head from the skull base through the vertex without IV contrast. One or more of the following individualized dose reduction techniques were utilized for the study: Automated exposure control Adjustment of mA and/or kV according to patient's size Use of iterative reconstruction technique. Findings: The ventricles and sulci are normal for the patient's age. No mass-effect, intracranial mass, midline shift, hemorrhage or obvious acute infarction is identified. Basilar cisterns are patent. Bone windows demonstrate no significant calvarial abnormality. The visualized paranasal sinuses appear clear. Impression: No acute intracranial process. Please note that CT can be relatively insensitive to acute ischemic infarction for up to 24 hours after symptom onset.
--- NOTE | 2016-08-10 16:59 | PREOP HP ---
DATE OF SERVICE: 08/09/2016 HISTORY OF PRESENT ILLNESS: The patient is a 46-year-old lady who presented to the Emergency Room due to lightheadedness, dizziness in the past few days. She has been having significant back pain, for which she has been prescribed hydrocodone and Flexeril. She also has received a steroid injection and Toradol injection in the office. She denies black tarry stool or blood in the stool, but does admit to having heavy period frequently. She does have previous history of fatty infiltration of the liver. She does drink alcohol regularly. She denies active bleeding or hemorrhoids. She has not been feeling good in last few days and has been very dizzy. PAST MEDICAL HISTORY: Significant for hypertension, fatty infiltration of the liver. REVIEW OF SYSTEMS: CONSTITUTIONAL: No weight loss, no fever, no chills. HEENT: No nasal congestion or sore throat. CARDIOVASCULAR: Denies chest pain or swelling in the lower extremities. PULMONARY: Denies shortness of breath. GASTROINTESTINAL: She does have abdominal bloating, symptoms of reflux and epigastric pain. She also does have complaint of increased abdominal girth and not feeling good in her abdomen and feeling bloated. She denies melena or hematochezia. GENITOURINARY: She does have stress incontinence. Denies dysuria. She did notice decrease in her urine output. MUSCULOSKELETAL: She does have acute back pain that started last week. She has had history of back pain in the past, but has been much worse during last week. NEUROLOGIC: Denies headache or focal deficit. ALLERGIES: She has no known drug allergies. MEDICATIONS: At home include Bystolic and Benicar HCT, hydrocodone, Flexeril. PHYSICAL EXAMINATION: GENERAL: She is well developed, well nourished, in no acute distress. HENT: Normocephalic, atraumatic. EYES: No icterus and conjunctivae, no discharge. NECK: Supple. HEART: Regular rate and rhythm, mildly tachycardic. LUNGS: Clear to auscultation. ABDOMEN: She does have positive epigastric tenderness. Positive abdominal bloating, decreased bowel sounds. SKIN: Warm and dry. BACK: She has no flank tenderness, but she does have mid lower back tenderness. EXTREMITIES: No edema, clubbing or cyanosis. IMPRESSION AND PLAN: 1. Acute renal failure, probably due to dehydration and recent use of anti-inflammatory. The patient is admitted. Continue hydration. Nephrology consult, we will obtain abdominal ultrasound. 2. Anemia and lightheadedness, possibly due to heavy period. We will obtain pelvic sonogram. Also GI consult to rule out GI blood loss. 3. Elevated liver enzymes and history of fatty infiltration of liver. Rule out liver cirrhosis, we will obtain abdominal ultrasound. We will also ask GI to evaluate. 4. The patient does report slurred speech and confusion. CT scan of the head was obtained. 5. Low back pain. Her x-ray showed muscle spasm. We will obtain MRI to rule out degenerative disk disease. ONUR SAMANIEGO MD DR: RASHEEDA/navarro JOB#: [id number] / [id number]
[2016-08-10 19:00] VITALS: BP 195/118
[2016-08-10] MEDS ORDERED: LORAZEPAM 0.5 MG TABLET. PO PRN (21:00)
[2016-08-10] MEDS: LORAZEPAM 1 MG TABLET. PO PRN (21:09)
[2016-08-10] MEDS: METOPROLOL TART IMMED RELEASE 50 MG TABLET PO SCH (21:09)
[2016-08-10 23:00] VITALS: BP 195/100
[2016-08-11] MEDS: IV NORMAL SALINE 1000ML BAG 1,000 ML IV SCH ×3 (00:37→17:46)
[2016-08-11] MEDS: LORAZEPAM 1 MG TABLET. PO PRN ×2 (01:01→20:01)
[2016-08-11 03:00] VITALS: BP 159/99
[2016-08-11 05:23] LABS: HEMATOCRIT 27.1 % (36.0-47.0); HEMOGLOBIN 8.4 g/dL (12.0-15.5); RED BLOOD COUNT 3.64 x10^6/uL (3.50-5.40); RED CELL DISTRIBUTION WIDTH 18.4 % (11.5-14.5); WHITE BLOOD COUNT 8.7 x10^3/uL (4.0-11.0)
[2016-08-11 05:38] LABS: CREATININE 1.2 mg/dL (0.6-1.0); GFR 58.3; POTASSIUM 3.9 mmol/L (3.5-5.1)
[2016-08-11 07:20] VITALS: BP 165/104
--- NOTE | 2016-08-11 07:27 | RAD ---
EXAM: Abdomen sonogram. HISTORY: Elevated liver function laboratory values. TECHNIQUE: Sonographic imaging of the abdomen was performed. COMPARISON: None. FINDINGS: The liver is enlarged. There is hepatic steatosis. No focal hepatic lesion is seen. The common bile duct is normal in caliber. The gallbladder is unremarkable. The kidneys are unremarkable. The pancreas is partially obscured due to bowel gas. The spleen is upper normal in size. The inferior vena cava is patent. The distal abdominal aorta is obscured due to bowel gas. IMPRESSION: 1. Hepatomegaly and hepatic steatosis. 2. Partially obscured pancreas and aorta due to bowel gas.
[2016-08-11 07:30] LABS: FOLIC ACID <2.0 ng/mL (>3.0)
--- NOTE | 2016-08-11 07:31 | RAD ---
EXAM: Pelvic sonogram. HISTORY: Heavy bleeding. TECHNIQUE: Transabdominal and transvaginal sonographic imaging of the pelvis was performed. COMPARISON: None. FINDINGS: The uterus measures 7.8 x 5.5 x 5.1 cm. There are multiple uterine fibroids, one of which measures 2.6 x 2.4 x 2.4 cm and is likely submucosal. This obscures the endometrial stripe. The additional fibroids measure 2.4 x 2.3 x 2.2 cm and 3.0 x 2.6 x 2.1 cm. The right ovary measures 3.0 x 1.9 x 1.9 cm and the left ovary measures 4.8 x 3.2 x 2.5 cm. There is normal blood flow within both ovaries. There is a left ovarian cyst measuring 3.3 cm. There is a right ovarian follicle measuring 9 mm. There is an echogenic focus with posterior shadowing within the right ovary, likely due to calcification. There is no pelvic free fluid. IMPRESSION: 1. Multiple uterine fibroids, one of which appears to be submucosal and measures 2.6 cm. This obscures the endometrium. 2. 3.3 cm left ovarian cyst and 9 mm right ovarian follicle. 3. Suspected right ovarian calcification.
[2016-08-11] MEDS: PANTOPRAZOLE 40 MG TABLET. PO SCH (07:54)
[2016-08-11] MEDS: METOPROLOL TART IMMED RELEASE 50 MG TABLET PO SCH ×2 (07:55→20:02)
[2016-08-11] MEDS: LOSARTAN POTASSIUM 50 MG TABLET. PO SCH (07:55)
--- NOTE | 2016-08-11 09:30 | PDOC ---
Subjective: Subjective: Per pt - no GI complaints. Asks if ultrasounds showed cancer. Doesn't like food. Objective: Objective: Per RN - pt crying overnight, wouldn't tell night RN what was wrong. ?DC today Vital Signs: Vital Signs Date Time Temp Pulse Resp B/P Pulse Ox O2 Delivery O2 Flow Rate FiO2 08/11/16 07:55 99 165/104 08/11/16 07:20 97.5 20 99 Room Air 97.5 Labs: Laboratory Tests Test 08/10/16 17:00 08/11/16 04:50 Ammonia 31mcmol/L White Blood Count 8.7x10^3/uL Red Blood Count 3.64x10^6/uL Hemoglobin 8.4g/dL Hematocrit 27.1% Mean Corpuscular Volume 74fL Mean Corpuscular Hemoglobin 23pg Mean Corpuscular Hemoglobin Concent 31g/dL Red Cell Distribution Width 18.4% Platelet Count 144x10^3/uL Sodium Level 140mmol/L Potassium Level 3.9mmol/L Chloride Level 105mmol/L Carbon Dioxide Level 22mmol/L Anion Gap 13 Blood Urea Nitrogen 17mg/dL Creatinine 1.2mg/dL Estimated GFR (Cockcroft-Gault) 58.3 Glucose Level 87mg/dL Calcium Level 9.0mg/dL Imaging: Abd US IMPRESSION: 1. Hepatomegaly and hepatic steatosis. 2. Partially obscured pancreas and aorta due to bowel gas. Lumbar MRI IMPRESSION 1. There is an extrusion extending above the L5-S1 intervertebral disc space more centrally, contact of the ventral rami of the descending L5 nerve roots bilaterally. There is mild edema of the posterior, inferior L5 endplate more likely to be reactive/degenerative in etiology. 2. There is mild degenerative disc disease L5-S1. 3. There are small foci of nonspecific marrow signal abnormality of the L3 vertebral body. Small atypical hemangiomas are favored over more aggressive marrow replacing lesions especially in a patient this age and assuming no suspicion for or history of malignancy. There are other small typical hemangiomas. 4. There is approximate 4 centimeter T2 hyperintense lesion of the left pelvis most likely due to adnexal cyst. Given size, confirmation with ultrasound may be beneficial. Pelvis US IMPRESSION: 1. Multiple uterine fibroids, one of which appears to be submucosal and measures 2.6 cm. This obscures the endometrium. 2. 3.3 cm left ovarian cyst and 9 mm right ovarian follicle. 3. Suspected right ovarian calcification. Head CT Impression: No acute intracranial process. Please note that CT can be relatively insensitive to acute ischemic infarction for up to 24 hours after symptom onset. PE: GEN: NAD LUNGS: CTAB HEART: RRR ABD: epigastric tenderness similar to yesterday NEURO/PSYCH: A & O 3, flat A/P: Anemia - stable -labs as above -heavy menstrual periods, fibroids on pelv US as above Elevated LFTs, fatty liver Dizziness - resolved AISSATOU - improved Back pain -per primary -- Will d/w Dr. Burroughs. OTILIA MONROY Aug 11, 2016 09:30
[2016-08-11] MEDS: FOLIC ACID 1 MG TABLET PO SCH ×2 (10:56→20:01)
[2016-08-11] MEDS: AMLODIPINE BESYLATE 5 MG TABLET PO SCH (10:57)
[2016-08-11 11:10] VITALS: BP 140/95
--- NOTE | 2016-08-11 11:35 | PDOC ---
Renal-Progress Notes Subjective Notes Notes NONE History of Present Illness Hx of present illness BETTER Vitals Vitals Vital Signs Date Time Temp Pulse Resp B/P Pulse Ox O2 Delivery O2 Flow Rate FiO2 08/11/16 11:10 97.9 84 18 140/95 98 Room Air 97.9 Weight Weight [ ] I.O. Intake and Output Intake and Output 08/11/16 07:00 Intake Total 1397 ml Balance 1397 ml Intake Oral 1050 ml IV Total 347 ml # Voids 6 Labs Labs Laboratory Tests Test 08/10/16 17:00 08/11/16 04:50 Ammonia 31mcmol/L (11-34) White Blood Count 8.7x10^3/uL (4.0-11.0) Red Blood Count 3.64x10^6/uL (3.50-5.40) Hemoglobin 8.4g/dL (12.0-15.5) Hematocrit 27.1% (36.0-47.0) Mean Corpuscular Volume 74fL (79-100) Mean Corpuscular Hemoglobin 23pg (25-35) Mean Corpuscular Hemoglobin Concent 31g/dL (31-37) Red Cell Distribution Width 18.4% (11.5-14.5) Platelet Count 144x10^3/uL (140-400) Sodium Level 140mmol/L (136-145) Potassium Level 3.9mmol/L (3.5-5.1) Chloride Level 105mmol/L (98-107) Carbon Dioxide Level 22mmol/L (21-32) Anion Gap 13 (6-14) Blood Urea Nitrogen 17mg/dL (7-20) Creatinine 1.2mg/dL (0.6-1.0) Estimated GFR (Cockcroft-Gault) 58.3 Glucose Level 87mg/dL (70-99) Calcium Level 9.0mg/dL (8.5-10.1) Micro Micro Microbiology 08/09/16 Urine Culture - Final, Complete 08/09/16 Urine Culture Result 1 (HEAVEN) - Final, Complete Review of Systems Constitutional: yes: alert, oriented Ears/Nose/Throat: Yes: no symptom reported Eyes: Yes: no symptom reported Cardiovascular: Yes no symptom reported Gastrointestional: Yes: no symptom reported Psychiatric/Neurological: Yes: other (DIZZY) Endocrine: Yes: no symptom reported Physical Exam General Appearance: no apparent distress Skin: warm Respiratory: bilateral CTA Heart: S1S2, RRR Abdomen: soft, bowel sounds present Genitourinary: bladder flat Extremities: pulses present, atrophy Neurology: alert, oriented Assessment Assessment IMP DEHYDRATION AISSATOU-IMPROVING WITH CR DOWN TO 1.2 PLAN CONT IVF'S LOWER RATE WILL FOLLOW NOAH WANG MD Aug 11, 2016 11:35
[2016-08-11 12:20] LABS: HEP A IGM ABDY Positive (Negative)
[2016-08-11 14:42] VITALS: BP 139/94
--- NOTE | 2016-08-11 19:03 | PDOC ---
SUBJECTIVE Subjective She does feel better today her back pain is better her headache is better and her speech is better, also her epigastric pain has improved OBJECTIVE Objective Blood pressure was elevated in the morning and amlodipine was added Vital Signs Vital Signs Date Time Temp Pulse Resp B/P Pulse Ox O2 Delivery O2 Flow Rate FiO2 08/11/16 14:42 98.2 83 18 139/94 100 Room Air 98.2 08/11/16 11:10 97.9 84 18 140/95 98 Room Air 97.9 08/11/16 10:57 84 140/95 08/11/16 07:55 99 165/104 08/11/16 07:55 99 165/104 08/11/16 07:20 97.5 99 20 165/104 99 Room Air 97.5 08/11/16 03:00 98.4 92 18 159/99 99 Room Air 98.4 08/10/16 23:00 98.8 102 20 195/100 95 Room Air 98.8 08/10/16 21:09 103 195/118 08/10/16 20:00 Room Air 08/10/16 19:00 98.4 103 21 195/118 97 Room Air 98.4 I & O Intake and Output 08/11/16 07:00 Intake Total 1397 ml Balance 1397 ml Intake Oral 1050 ml IV Total 347 ml # Voids 6 PHYSICAL EXAM Physical Exam No change in physical exam ASSESSMENT/PLAN Assessment/Plan 1. Acute renal failure, improved 2. Iron deficiency Anemia and lightheadedness, due to chronic blood loss probably due to uterine fibroids discussed with the patient we'll arrange for [employer] consultation as outpatient considering hysterectomy 3. Elevated liver enzymes and history of fatty infiltration of liver. Her liver ultrasound confirms the same, hepatitis panel is pending, advised against alcohol 4. The patient does report slurred speech and confusion. Probably due to hypertensive encephalopathy, CT scan of the head is negative 5. Low back pain. MRI finding was discussed with the patient 6- gastritis improved after PPI, still guaiac pending if negative plan to discharge home and have EGD as outpatient, [employer] consultation to consider hysterectomy, iron supplementation 7-folic acid deficiency Problems: COMMENT Lab Laboratory Tests Test 08/11/16 04:50 White Blood Count 8.7x10^3/uL (4.0-11.0) Red Blood Count 3.64x10^6/uL (3.50-5.40) Hemoglobin 8.4g/dL (12.0-15.5) Hematocrit 27.1% (36.0-47.0) Mean Corpuscular Volume 74fL (79-100) Mean Corpuscular Hemoglobin 23pg (25-35) Mean Corpuscular Hemoglobin Concent 31g/dL (31-37) Red Cell Distribution Width 18.4% (11.5-14.5) Platelet Count 144x10^3/uL (140-400) Sodium Level 140mmol/L (136-145) Potassium Level 3.9mmol/L (3.5-5.1) Chloride Level 105mmol/L (98-107) Carbon Dioxide Level 22mmol/L (21-32) Anion Gap 13 (6-14) Blood Urea Nitrogen 17mg/dL (7-20) Creatinine 1.2mg/dL (0.6-1.0) Estimated GFR (Cockcroft-Gault) 58.3 Glucose Level 87mg/dL (70-99) Calcium Level 9.0mg/dL (8.5-10.1) ONUR SAMANIEGO MD Aug 11, 2016 19:03
[2016-08-11 19:20] VITALS: BP 129/87
[2016-08-11 23:08] VITALS: BP 135/85
[2016-08-12 03:12] VITALS: BP 154/102
[2016-08-12 04:22] LABS: HEMATOCRIT 26.6 % (36.0-47.0); RED BLOOD COUNT 3.5 x10^6/uL (3.50-5.40); RED CELL DISTRIBUTION WIDTH 17.9 % (11.5-14.5); WHITE BLOOD COUNT 7.3 x10^3/uL (4.0-11.0)
[2016-08-12 04:45] LABS: ALBUMIN 2.9 g/dL (3.4-5.0); ALBUMIN/GLOBULIN RATIO 0.5 (1.0-1.7); CALCIUM 8.7 mg/dL (8.5-10.1); CREATININE 1.2 mg/dL (0.6-1.0); GFR 58.3; POTASSIUM 3.4 mmol/L (3.5-5.1); TOTAL BILIRUBIN 0.7 mg/dL (0.2-1.0); TOTAL PROTEIN 8.4 g/dL (6.4-8.2)
[2016-08-12 07:24] VITALS: BP 169/110
[2016-08-12] MEDS: LOSARTAN POTASSIUM 50 MG TABLET. PO SCH (07:35)
[2016-08-12] MEDS: AMLODIPINE BESYLATE 5 MG TABLET PO SCH (07:35)
[2016-08-12] MEDS: FOLIC ACID 1 MG TABLET PO SCH (08:45)
[2016-08-12] MEDS: PANTOPRAZOLE 40 MG TABLET. PO SCH (08:45)
[2016-08-12] MEDS: METOPROLOL TART IMMED RELEASE 50 MG TABLET PO SCH (08:46)
[2016-08-12] MEDS: IV NORMAL SALINE 1000ML BAG 1,000 ML IV SCH (08:47)
--- NOTE | 2016-08-12 10:12 | PDOC ---
G I PROGRESS NOTE Subjective No GI complaints. Thinks will go home today. Objective Apparently to schedule DEBUBBLIZER surgery as outpatient. Physical Exam Lungs clear. RRR Abdomen soft, not distented nor tender. Review of Relevant I have reviewed the following items bri (where applicable) has been applied. Labs Laboratory Tests Test 08/10/16 17:00 08/10/16 17:30 08/11/16 04:50 08/12/16 03:30 Ammonia 31mcmol/L (11-34) Hepatitis A IgM Antibody Positive (Negative) Hepatitis B Surface Antigen Negative (Negative) Hepatitis B Core IgM Antibody Negative (Negative) Hepatitis C Antibody <0.1s/co ratio (0.0-0.9) White Blood Count 8.7x10^3/uL (4.0-11.0) 7.3x10^3/uL (4.0-11.0) Red Blood Count 3.64x10^6/uL (3.50-5.40) 3.50x10^6/uL (3.50-5.40) Hemoglobin 8.4g/dL (12.0-15.5) 8.0g/dL (12.0-15.5) Hematocrit 27.1% (36.0-47.0) 26.6% (36.0-47.0) Mean Corpuscular Volume 74fL (79-100) 76fL (79-100) Mean Corpuscular Hemoglobin 23pg (25-35) 23pg (25-35) Mean Corpuscular Hemoglobin Concent 31g/dL (31-37) 30g/dL (31-37) Red Cell Distribution Width 18.4% (11.5-14.5) 17.9% (11.5-14.5) Platelet Count 144x10^3/uL (140-400) 135x10^3/uL (140-400) Sodium Level 140mmol/L (136-145) 136mmol/L (136-145) Potassium Level 3.9mmol/L (3.5-5.1) 3.4mmol/L (3.5-5.1) Chloride Level 105mmol/L (98-107) 103mmol/L (98-107) Carbon Dioxide Level 22mmol/L (21-32) 22mmol/L (21-32) Anion Gap 13 (6-14) 11 (6-14) Blood Urea Nitrogen 17mg/dL (7-20) 16mg/dL (7-20) Creatinine 1.2mg/dL (0.6-1.0) 1.2mg/dL (0.6-1.0) Estimated GFR (Cockcroft-Gault) 58.3 58.3 Glucose Level 87mg/dL (70-99) 85mg/dL (70-99) Calcium Level 9.0mg/dL (8.5-10.1) 8.7mg/dL (8.5-10.1) BUN/Creatinine Ratio 13 (6-20) Total Bilirubin 0.7mg/dL (0.2-1.0) Aspartate Amino Transf (AST/SGOT) 70U/L (15-37) Alanine Aminotransferase (ALT/SGPT) 58U/L (14-59) Alkaline Phosphatase 143U/L (46-116) Total Protein 8.4g/dL (6.4-8.2) Albumin 2.9g/dL (3.4-5.0) Albumin/Globulin Ratio 0.5 (1.0-1.7) Laboratory Tests Test 08/12/16 03:30 White Blood Count 7.3x10^3/uL (4.0-11.0) Red Blood Count 3.50x10^6/uL (3.50-5.40) Hemoglobin 8.0g/dL (12.0-15.5) Hematocrit 26.6% (36.0-47.0) Mean Corpuscular Volume 76fL (79-100) Mean Corpuscular Hemoglobin 23pg (25-35) Mean Corpuscular Hemoglobin Concent 30g/dL (31-37) Red Cell Distribution Width 17.9% (11.5-14.5) Platelet Count 135x10^3/uL (140-400) Sodium Level 136mmol/L (136-145) Potassium Level 3.4mmol/L (3.5-5.1) Chloride Level 103mmol/L (98-107) Carbon Dioxide Level 22mmol/L (21-32) Anion Gap 11 (6-14) Blood Urea Nitrogen 16mg/dL (7-20) Creatinine 1.2mg/dL (0.6-1.0) Estimated GFR (Cockcroft-Gault) 58.3 BUN/Creatinine Ratio 13 (6-20) Glucose Level 85mg/dL (70-99) Calcium Level 8.7mg/dL (8.5-10.1) Total Bilirubin 0.7mg/dL (0.2-1.0) Aspartate Amino Transf (AST/SGOT) 70U/L (15-37) Alanine Aminotransferase (ALT/SGPT) 58U/L (14-59) Alkaline Phosphatase 143U/L (46-116) Total Protein 8.4g/dL (6.4-8.2) Albumin 2.9g/dL (3.4-5.0) Albumin/Globulin Ratio 0.5 (1.0-1.7) Microbiology 08/09/16 Urine Culture - Final, Complete 08/09/16 Urine Culture Result 1 (HEAVEN) - Final, Complete Medications Current Medications Ondansetron HCl (Zofran) 4 mg PRN Q8HRS PRN IV NAUSEA/VOMITING; Start 08/09/16 at 23:00; Stop 08/10/16 at 22:59; Status DC Morphine Sulfate 2 mg 2 mg PRN Q2HR PRN IV SEVERE PAIN Last administered on 08/10 01:51; Start 08/09/16 at 23:00; Stop 08/10/16 at 22:59; Status DC Sodium Chloride (Iv Sodium Chloride 0.9% 1000ml Bag) 1,000 ml @ 125 mls/hr 1X ONCE IV Last administered on 08/09/16 00:43; Start 08/09/16 at 23:00; Stop at 06:59; Status DC Potassium Chloride 20 meq 20 meq 1X ONCE PO Last administered on 08/09/16 00: 43; Start 08/09/16 at 23:45; Stop 08/09/16 at 23:46; Status DC Sodium Chloride (Iv Sodium Chloride 0.9% 1000ml Bag) 1,000 ml @ 75 mls/hr [id number] IV Last administered on 08/12/16 08:47; Start 08/10/16 at 11:15 Pantoprazole Sodium (Protonix) 40 mg DAILYAC PO Last administered on 08/12/16 08:45; Start 08/11/16 at 07:30 Losartan Potassium (Cozaar) 50 mg DAILY PO Last administered on 08/12/16 07:35 ; Start 08/10/16 at 16:00 Metoprolol Tartrate (Lopressor) 50 mg BID PO Last administered on 08/12/16 08: 46; Start 08/10/16 at 21:00 Lorazepam (Ativan) 0.5 mg PRN Q4HRS PRN PO MODERATE ANXIETY / AGITATION Last administered on 08/12/16 08:46; Start 08/10/16 at 21:00 Lorazepam (Ativan) 1 mg PRN Q4HRS PRN PO SEVERE ANXIETY/AGITATION Last administered on 08/11/16 20:01; Start 08/10/16 at 21:00 Amlodipine Besylate (Norvasc) 5 mg DAILY PO Last administered on 08/12/16 07: 35; Start 08/11/16 at 10:00 Folic Acid (Folic Acid) 1 mg BID PO Last administered on 08/12/16 08:45; Start 08/11/16 at 10:00 Active Scripts Active Reported Bystolic (Nebivolol) 10 Mg Tablet 1 Tab PO DAILY Benicar Hct 40-25 Mg Tablet (Olmesartan/Hydrochlorothiazide) 1 Each Tablet 1 Tab PO DAILY Vitals/I & O Vital Sign - Last 24 Hours 08/11/16 08/11/16 08/11/16 08/11/16 10:57 11:10 14:42 19:20 Temp 97.9 98.2 98.8 97.9 98.2 98.8 Pulse 84 84 83 88 Resp 18 18 18 B/P 140/95 140/95 139/94 129/87 Pulse Ox 98 100 98 O2 Delivery Room Air Room Air Room Air 08/11/16 08/11/16 08/11/16 08/12/16 20:00 20:02 23:08 03:12 Temp 98.1 97.9 98.1 97.9 Pulse 88 84 84 Resp 18 18 B/P 129/87 135/85 154/102 Pulse Ox 98 100 O2 Delivery Room Air Room Air Room Air 08/12/16 08/12/16 08/12/16 08/12/16 07:24 07:35 07:35 08:46 Temp 97.9 97.9 Pulse 92 92 92 92 Resp 18 B/P 169/110 169/110 169/110 169/110 Pulse Ox 98 O2 Delivery Room Air Intake and Output 08/11/16 08/11/16 08/12/16 15:00 23:00 07:00 Intake Total 500 ml 1368 ml 300 ml Balance 500 ml 1368 ml 300 ml Problem List Problems Medical Problems: (1) Acute kidney injury Status: Acute (2) Dehydration Status: Acute (3) Lightheadedness Status: Acute Assessment CHENCHO, suspect DEBUBBLIZER source. Alcohol abuse/abnormal LFT's likely from this with hepatic steatosis on sono. Plan of Care: Continue current Tx, Mgmt Plan of Care Note No objections to discharge. If felt needs 'scopes, gave business card with contact info. Thanks. DOUGLAS PINEDO MD Aug 12, 2016 10:12
[2016-08-12] MEDS ORDERED: METO100T11 PO (10:18)
[2016-08-12] MEDS ORDERED: AMLO5TAB2 PO (10:18)
[2016-08-12] MEDS ORDERED: PANT40TA5 PO (10:18)
[2016-08-12] MEDS ORDERED: LOSA1TAB17 PO (10:18)
[2016-08-12] MEDS ORDERED: FOLI1TAB16 PO (10:18)
[2016-08-12] MEDS ORDERED: SPIR25TA3 PO (10:18)
--- NOTE | 2016-08-12 10:20 | PDOC3 ---
Discharge Summary* Date of Admission: Aug 09, 2016 Date of Discharge: Aug 12, 2016 Admitting Diagnosis Problems Medical Problems: (1) Acute kidney injury Status: Acute (2) Dehydration Status: Acute (3) Lightheadedness Status: Acute Final Diagnosis 1. Acute renal failure, improved 2. Iron deficiency Anemia and lightheadedness, due to chronic blood loss probably due to uterine fibroids discussed with the patient we'll arrange for [facility] consultation as outpatient considering hysterectomy 3. Elevated liver enzymes and history of fatty infiltration of liver. Her liver ultrasound confirms the same, advised against alcohol 4. speech and confusion. Probably due to hypertensive encephalopathy, CT scan of the head is negative 5. Low back pain. MRI was degenerative joint disease 6- gastritis improved after PPI, 7-folic acid deficiency 8-HTN Problems Medical Problems: (1) Acute kidney injury Status: Acute (2) Dehydration Status: Acute (3) Lightheadedness Status: Acute CONSULTS GI Dr. Contreras Procedures CT scan of the head Abdominal ultrasound Pelvic ultrasound MRI of the lumbar spine Brief Hospital Course Ms. Nguyen is a 46 old [sex] who presented with dizziness and lightheadedness she was found to have acute renal injury was started on hydration she was anemic and continued to have anemia, she did have epigastric pain but did not have black stool her history was consistent was heavy. Her pelvic ultrasound showed uterine fibroids probably the cause of her iron to see anemia she will start iron supplementation and consult with [facility] PHOTOGR[employer]HER as outpatient, her GI symptoms improved with PPI she will continue that as outpatient for a month's area when just this is stopped of her GI symptoms return and EGD might be appropriate this was discussed with the patient, she also had elevated liver enzymes her ultrasound showed fatty liver, her hepatitis profile showed hepatitis A which shows she has had in the past, her MRI of the spine showed degenerative joint disease, her pain has improved but discussed with the patient possibility of pain clinic referral in case the back pain reoccurs, at this point she has reached the maximum benefit of the hospital stay she will be discharged and followed up as outpatient Disposition/Orders: D/C to Home CONDITION AT DISCHARGE: Improved Diet: 2 gr sodium Scheduled Amlodipine Besylate (Amlodipine Besylate) 5 MG PO DAILY Folic Acid (Folic Acid) 1 MG PO BID Losartan/Hydrochlorothiazide (Losartan-Hctz 100-25 Mg Tab) 1 TAB PO DAILY Metoprolol Succinate (Metoprolol Succinate ( Xl )) 1 TAB PO DAILY Pantoprazole Sodium (Pantoprazole Sodium) 40 MG PO DAILYAC Spironolactone (Spironolactone) 1 TAB PO DAILY Discontinued Medications Nebivolol Hcl (Bystolic) 1 TAB PO DAILY (Reported) Olmesartan/Hydrochlorothiazide (Benicar Hct 40-25 Mg Tablet) 1 TAB PO DAILY ( Reported) FOLLOW UP APPOINTMENT: offfice 2 week, take OTC iron supplement, [facility] PH[employer]GR[employer]HER consult out pt Time Spent Total time spent with patient [] minutes for coordination of care, counseling, and education. ONUR SAMANIEGO MD Aug 12, 2016 10:20
--- NOTE | 2016-08-12 10:20 | PDOC ---
OBJECTIVE Vital Signs Vital Signs Date Time Temp Pulse Resp B/P Pulse Ox O2 Delivery O2 Flow Rate FiO2 08/12/16 08:46 92 169/110 08/12/16 07:35 92 169/110 08/12/16 07:35 92 169/110 08/12/16 07:24 97.9 92 18 169/110 98 Room Air 97.9 08/12/16 03:12 97.9 84 18 154/102 100 Room Air 97.9 08/11/16 23:08 98.1 84 18 135/85 98 Room Air 98.1 08/11/16 20:02 88 129/87 08/11/16 20:00 Room Air 08/11/16 19:20 98.8 88 18 129/87 98 Room Air 98.8 08/11/16 14:42 98.2 83 18 139/94 100 Room Air 98.2 08/11/16 11:10 97.9 84 18 140/95 98 Room Air 97.9 08/11/16 10:57 84 140/95 I & O Intake and Output 08/12/16 07:00 Intake Total 2168 ml Balance 2168 ml Intake Oral 1300 ml IV Total 868 ml # Voids 7 COMMENT Lab Laboratory Tests Test 08/12/16 03:30 White Blood Count 7.3x10^3/uL (4.0-11.0) Red Blood Count 3.50x10^6/uL (3.50-5.40) Hemoglobin 8.0g/dL (12.0-15.5) Hematocrit 26.6% (36.0-47.0) Mean Corpuscular Volume 76fL (79-100) Mean Corpuscular Hemoglobin 23pg (25-35) Mean Corpuscular Hemoglobin Concent 30g/dL (31-37) Red Cell Distribution Width 17.9% (11.5-14.5) Platelet Count 135x10^3/uL (140-400) Sodium Level 136mmol/L (136-145) Potassium Level 3.4mmol/L (3.5-5.1) Chloride Level 103mmol/L (98-107) Carbon Dioxide Level 22mmol/L (21-32) Anion Gap 11 (6-14) Blood Urea Nitrogen 16mg/dL (7-20) Creatinine 1.2mg/dL (0.6-1.0) Estimated GFR (Cockcroft-Gault) 58.3 BUN/Creatinine Ratio 13 (6-20) Glucose Level 85mg/dL (70-99) Calcium Level 8.7mg/dL (8.5-10.1) Total Bilirubin 0.7mg/dL (0.2-1.0) Aspartate Amino Transf (AST/SGOT) 70U/L (15-37) Alanine Aminotransferase (ALT/SGPT) 58U/L (14-59) Alkaline Phosphatase 143U/L (46-116) Total Protein 8.4g/dL (6.4-8.2) Albumin 2.9g/dL (3.4-5.0) Albumin/Globulin Ratio 0.5 (1.0-1.7) ONUR SAMANIEGO MD Aug 12, 2016 10:19
--- NOTE | 2016-08-12 10:29 | PDOC ---
Renal-Progress Notes Subjective Notes Notes BETTER History of Present Illness Hx of present illness STABLE Vitals Vitals Vital Signs Date Time Temp Pulse Resp B/P Pulse Ox O2 Delivery O2 Flow Rate FiO2 08/12/16 08:46 92 169/110 08/12/16 07:24 97.9 18 98 Room Air 97.9 Weight Weight [ ] I.O. Intake and Output Intake and Output 08/12/16 07:00 Intake Total 2168 ml Balance 2168 ml Intake Oral 1300 ml IV Total 868 ml # Voids 7 Labs Labs Laboratory Tests Test 08/12/16 03:30 White Blood Count 7.3x10^3/uL (4.0-11.0) Red Blood Count 3.50x10^6/uL (3.50-5.40) Hemoglobin 8.0g/dL (12.0-15.5) Hematocrit 26.6% (36.0-47.0) Mean Corpuscular Volume 76fL (79-100) Mean Corpuscular Hemoglobin 23pg (25-35) Mean Corpuscular Hemoglobin Concent 30g/dL (31-37) Red Cell Distribution Width 17.9% (11.5-14.5) Platelet Count 135x10^3/uL (140-400) Sodium Level 136mmol/L (136-145) Potassium Level 3.4mmol/L (3.5-5.1) Chloride Level 103mmol/L (98-107) Carbon Dioxide Level 22mmol/L (21-32) Anion Gap 11 (6-14) Blood Urea Nitrogen 16mg/dL (7-20) Creatinine 1.2mg/dL (0.6-1.0) Estimated GFR (Cockcroft-Gault) 58.3 BUN/Creatinine Ratio 13 (6-20) Glucose Level 85mg/dL (70-99) Calcium Level 8.7mg/dL (8.5-10.1) Total Bilirubin 0.7mg/dL (0.2-1.0) Aspartate Amino Transf (AST/SGOT) 70U/L (15-37) Alanine Aminotransferase (ALT/SGPT) 58U/L (14-59) Alkaline Phosphatase 143U/L (46-116) Total Protein 8.4g/dL (6.4-8.2) Albumin 2.9g/dL (3.4-5.0) Albumin/Globulin Ratio 0.5 (1.0-1.7) Micro Micro Microbiology 08/09/16 Urine Culture - Final, Complete 08/09/16 Urine Culture Result 1 (HEAVEN) - Final, Complete Review of Systems Constitutional: yes: alert, oriented Ears/Nose/Throat: Yes: no symptom reported Eyes: Yes: no symptom reported Cardiovascular: Yes no symptom reported Gastrointestional: Yes: no symptom reported Psychiatric/Neurological: Yes: other (DIZZY) Endocrine: Yes: no symptom reported Physical Exam General Appearance: no apparent distress Skin: warm Respiratory: bilateral CTA Heart: S1S2, RRR Abdomen: soft, bowel sounds present Genitourinary: bladder flat Extremities: pulses present, atrophy Neurology: alert, oriented Assessment Assessment IMP DEHYDRATION AISSATOU-RESOLVED PLAN WILL SIGN OFF NOAH WANG MD Aug 12, 2016 10:29
[2016-08-12 10:38] VITALS: BP 150/109
== END 2016-08-12 14:10 | disposition home or self-care (01) | DRG 683 ==
LOC: ER 19:33 → 6 SOUTH 22:33 → OBSVTOIN 08-11 12:50
PROVIDERS: ADMIT Internal Medicine; ATTEND Internal Medicine
DX: N17.9 Acute kidney failure, unspecified (principal); B15.9 Hepatitis A without hepatic coma; I10 Essential (primary) hypertension; D25.9 Leiomyoma of uterus, unspecified; G89.29 Other chronic pain; F10.10 Alcohol abuse, uncomplicated; K76.0 Fatty (change of) liver, not elsewhere classified; M19.90 Unspecified osteoarthritis, unspecified site; M54.5 Low back pain; M47.9 Spondylosis, unspecified; D50.0 Iron deficiency anemia secondary to blood loss (chronic); K29.70 Gastritis, unspecified, without bleeding; Z83.3 Family history of diabetes mellitus
CPT/HCPCS: 36415; 70450; 72148; 76700; 76830; 76856; 80048; 80053; 80074; 80076; 81001; 82140; 82607; 82728; 82746; 83540; 83550; 83690; 83880; 84484; 85007; 85027; 87086; 93005; G0378; G0379; J2270; J7030

== ENCOUNTER → 2016-11-06 | Outpatient (CLI) | payer OTHER ==
[~2016-11-06] MED LIST changes: +AMLO5TAB2 PO; +FOLI1TAB16 PO; +LOSA1TAB17 PO; +METO100T11 PO; +PANT40TA5 PO; +SPIR25TA3 PO
[2016-11-06 08:42] LABS: BASO # 0.1 x10^3/uL (0.0-0.2); BASO % 1 % (0-3); EOS % 2 % (0-3); HEMATOCRIT 26.7 % (36.0-47.0); HEMOGLOBIN 8.4 g/dL (12.0-15.5); LYMPH # 2.8 x10^3/uL (1.0-4.8); LYMPH % 32 % (24-48); MEAN CORPUSCULAR HEMOGLOBIN 26 pg (25-35); MEAN CORPUSCULAR HGB CONC 32 g/dL (31-37); MEAN CORPUSCULAR VOLUME 81 fL (79-100); MONO % 6 % (0-9); NEUT % 59 % (31-73); PLATELET COUNT 178 x10^3/uL (140-400); RED BLOOD COUNT 3.28 x10^6/uL (3.50-5.40); RED CELL DISTRIBUTION WIDTH 18.2 % (11.5-14.5); WHITE BLOOD COUNT 8.6 x10^3/uL (4.0-11.0)
[2016-11-06 09:02] LABS: ALBUMIN 3.2 g/dL (3.4-5.0); ALBUMIN/GLOBULIN RATIO 0.5 (1.0-1.7); CALCIUM 9.6 mg/dL (8.5-10.1); CREATININE 1.5 mg/dL (0.6-1.0); TOTAL BILIRUBIN 0.6 mg/dL (0.2-1.0); TOTAL PROTEIN 9.3 g/dL (6.4-8.2)
[2016-11-06 09:04] LABS: CHOLESTEROL/HDL RATIO 5.3
[2016-11-06 09:06] LABS: % SAT IRON 9 % (15-34); IRON,SERUM 43 ug/dL (50-170)
== END | disposition home or self-care (01) ==
LOC: LAB 08:22
PROVIDERS: ATTEND Internal Medicine
DX: D64.9 Anemia, unspecified (principal); K76.0 Fatty (change of) liver, not elsewhere classified; I10 Essential (primary) hypertension
CPT/HCPCS: 36415; 80053; 80061; 82728; 83540; 83550; 84443; 85027

== ENCOUNTER → 2016-11-23 | Outpatient (CLI) | payer OTHER ==
[2016-11-23 17:37] LABS: CALCIUM 9.4 mg/dL (8.5-10.1); CREATININE 1.2 mg/dL (0.6-1.0); GFR 58.3; POTASSIUM 3.8 mmol/L (3.5-5.1)
== END | disposition home or self-care (01) ==
LOC: LAB 16:53
PROVIDERS: ATTEND Internal Medicine
DX: I10 Essential (primary) hypertension (principal)
CPT/HCPCS: 36415; 80048

== ENCOUNTER → 2018-08-15 | Outpatient (CLI) | payer OTHER ==
[~2018-08-15] MED LIST changes: -AMLO5TAB2 PO; +AMLO5TAB7 PO; -LOSA1TAB17 PO; +LOSA1TAB22 PO; +METO-247 PO; -METO100T11 PO; +OLME1TAB25 PO; -OLME1TAB5 PO; -SPIR25TA3 PO; +SPIR25TA5 PO
--- NOTE | 2018-08-22 15:12 | KCIC ---
BILATERAL SCREENING MAMMOGRAM, 3-D History: Routine screening. Comparison: None. This is a baseline examination. Technique: MLO and CC digital tomosynthesis (3D) images obtained. Radiologist reviewed these images on dedicated workstation. Findings: Breast Tissue Density B : There are scattered areas of fibroglandular density. There is a small probable intramammary lymph node in the upper-outer left breast at mid depth. Left breast arterial calcifications are noted. There are no dominant suspicious masses, suspicious microcalcifications, or architectural distortion. IMPRESSION: No mammographic evidence of malignancy. Recommend routine screening. BI-RADS category 2: Benign findings. The images were reviewed with computer-aided detection. Patient information is entered into reminder system with a target due date for the next screening mammogram. Mammography is the most sensitive method for finding small breast cancers, but it does not detect them all and is not a substitute for careful clinical examination. A negative mammogram does not negate a clinically suspicious finding and should not result in delay in biopsying a clinically suspicious abnormality. "Our facility is accredited by the [employer] Mammography Program." Electronically signed by: Lalo Rouse MD (08/17/2018 4:52 PM) [id number]
== END | disposition home or self-care (01) ==
LOC: KCIC MAMMO 17:35
PROVIDERS: ATTEND Physician Assistant Surgical
DX: Z12.31 Encounter for screening mammogram for malignant neoplasm of breast (principal)
CPT/HCPCS: 77063; 77067